=== PATIENT | female | born 1980 | race Caucasian/White ===

== ENCOUNTER → 2019-10-07 17:06 | Outpatient (REF) | payer BC, SELFPAY | LOC: ANHLAB 17:06 | PROVIDERS: Visit Provider Nurse Practitioner Family | DX: L98.9 Disorder of the skin and subcutaneous tissue, unspecified (principal) | CPT/HCPCS: 88305 ==

== ENCOUNTER 2019-10-15 10:54 | Emergency (ER) | payer BC, SELFPAY ==
[2019-10-15 11:11] VITALS: BP 127/86; PULSE 98; RESP 16; TEMP 36.5; O2SAT 98
--- NOTE | 2019-10-15 11:53 | ED.GENADULT ---
HPI - General Adult General Chief complaint: Nausea/Vomiting/Diarrhea Stated complaint: headache Time Seen by Provider: 10/15/19 11:24 Source: patient Mode of arrival: ambulatory Limitations: no limitations History of Present Illness HPI narrative: This patient is a 39 year old female who presents for evaluation of nausea and vomiting. PAtient states she was having diarrhea 2 days ago, and she woke up last night with nausea and vomiting. She states she feels dehydrated and she developed a frontal headache after vomiting all night. She denies fever, chills, abdominal pain, URI symptoms or UTI symptoms. Related Data Allergies Allergy/AdvReac Type Severity Reaction Status Date / Time codeine Allergy Intermediate RASH Verified 10/15/19 11:09 Review of Systems Review of Systems: All systems reviewed & are unremarkable except as noted in HPI and below Constitutional: Constitutional: Denies chills and Denies fever(s) ENT: Denies dizziness Cardiovascular: Cardiovascular: Denies chest pain Respiratory: Respiratory: Denies cough and Denies dyspnea Gastrointestinal: Gastrointestinal: Denies abdominal pain, Reports diarrhea, Reports nausea and Reports vomiting Genitourinary: Genitourinary: Reports no additional female genitourinary complaints Neurologic: Reports headache(s) [facility] Past Medical History Medical History (Updated 10/15/19 @ 15:40 by Tri Stephen MD) Skin neoplasm Surgical History Surgical History (Updated 10/07/19 @ 17:01 by Fernanda Jacobs CMA) History of hand surgery History of rhinoplasty Family History Family History (Updated 10/07/19 @ 17:01 by Fernanda Jacobs CMA) Mother Cancer of kidney Social History Social History (Updated 10/07/19 @ 17:02 by Fernanda Jacobs CMA) Smoking status: Former smoker Alcohol intake: current Substance use: never Gender identity (if verbalized by the patient): Female Exam Narrative: Exam Narrative: GENERAL: Well-appearing, well-nourished, and in no acute distress. HEAD: Normocephalic, atraumatic EYES: PERRLA and EOMI, conjunctiva clear without discharge EARS: TM's clear bilaterally without erythema or dullness THROAT:Mucous membranes moist, NECK: Supple, RESPIRATORY: No respiratory distress, Airway patent, Respirations non-labored, Clear to auscultation without rales, rhonchi or wheeze HEART: Regular rate and rhythm. No murmur heard. Normal peripheral pulses. ABDOMEN: Soft, nontender, nondistended, normal active bowel sounds. No masses. No rebound or guarding, No organomegaly. EXTREMITIES: No edema, normal strength with full range of motion. SKIN: Warm, dry, normal color without rash NEURO: Alert and oriented x3. CN 2-12 grossly intact. No focal deficits. PSYCH: Normal mood and affect. Course Reevaluation(s) Reevaluation #1: I Discussed with patient that labs are unremarkable. She feels better and she is able to tolerate PO. She will follow up her [employer] regarding covid testing since she works at [employer] Date: 10/15/19 Time: 15:38 Vital Signs Vital signs: Vital Signs Temperature 97.7 F 10/15/19 11:11 Pulse Rate 98 10/15/19 11:11 Respiratory Rate 16 10/15/19 11:11 Blood Pressure 127/86 10/15/19 11:11 Pulse Oximetry 98 10/15/19 11:11 Temperature 97.7 F 10/15/19 11:11 Pulse Rate 88 10/15/19 16:10 Respiratory Rate 18 10/15/19 16:10 Blood Pressure 128/82 10/15/19 16:10 Pulse Oximetry 100 10/15/19 16:10 Medical Decision Making Vital Signs Vital Signs: Vital Signs Temperature 97.7 F 10/15/19 11:11 Pulse Rate 98 10/15/19 11:11 Respiratory Rate 16 10/15/19 11:11 Blood Pressure 127/86 10/15/19 11:11 Pulse Oximetry 98 10/15/19 11:11 Temperature 97.7 F 10/15/19 11:11 Pulse Rate 88 10/15/19 16:10 Respiratory Rate 18 10/15/19 16:10 Blood Pressure 128/82 10/15/19 16:10 Pulse Oximetry 100 10/15/19 16:10 Lab Data Result vianey
[2019-10-15 12:08] LABS: Basophils Percent Auto 0.7 % (0.2-1.2); Eosinophils Absolute Auto 0.1 K/mm3 (0-0.3); Eosinophils Percent Auto 1.4 % (0-4.4); Hematocrit 40.7 % (37.0-47.0); Hemoglobin 13.8 g/dL (12.0-15.0); Immature Granulocyte Absolute 0.03 K/mm3 (0.00-0.031); Immature Granulocyte Percent A 0.5 % (0-0.5); Lymphocytes Absolute Auto 1.72 K/mm3 (0.9-3.2); Lymphocytes Percent Auto 29.9 % (18.3-44.2); Mean Corpuscular HGB Conc 33.9 g/dl (32-36); Mean Corpuscular Hemoglobin 32.9 pg (26-34); Mean Corpuscular Volume 96.9 fl (80-100); Mean Platelet Volume 9.9 fl (7.4-10.4); Monocytes Absolute Auto 0.3 K/mm3 (0.1-0.6); Monocytes Percent Auto 5.6 % (2.6-8.5); Neutrophils Absolute Auto 3.6 K/mm3 (1.3-6.7); Neutrophils Percent Auto 61.9 % (45.5-73.1); Platelet Count Result 336 k/mm3 (150-375); Red Cell Distribution Width 13.1 % (11.5-14.5); White Blood Count 5.8 K/mm3 (4.5-10.0)
[2019-10-15] MEDS: ONDANSETRON INJ 4 MG/2 ML VIAL IV PUSH (12:11)
[2019-10-15] MEDS: LACTATED RINGERS 1,000 ML 999 ML IV CONT (12:11)
[2019-10-15 12:18] LABS: Alanine Aminotransferase 18 U/L (4-35); Albumin Level 4.8 g/dL (3.5-5.1); Alkaline Phosphatase 60 U/L (38-126); Anion Gap 14.4 mmol/L (7-16); Aspartate Amino Transferase 27 U/L (14-36); Bilirubin,Total 0.3 mg/dL (0.2-1.3); Blood Urea Nitrogen 10 mg/dL (7-17); Calcium 9.2 mg/dL (8.4-10.2); Carbon Dioxide 26 mmol/L (22-30); Chloride 105 mmol/L (98-107); Estimated CRCL calculation 78 ml/min; Estimated Glomerular Filt Rate > 60; Glucose 84 mg/dL (65-105); Lipase 59 U/L (23-300); Potassium 4.4 mmol/L (3.4-5.0); Sodium 141 mmol/L (137-145)
[2019-10-15 12:30] VITALS: BP 109/67; BP 125/87; BP 128/85; PULSE 77; PULSE 83; PULSE 84
[2019-10-15 13:16] LABS: Add Urine Microscopic? NO; Appearance Urine Clear (Clear); Bilirubin Urine Negative (Negative); Blood Urine Negative (Negative); Color Urine Yellow (Yellow); Glucose Urine UA Negative (Negative); Ketones Urine Negative (Negative); Leukocyte Esterase Ur Negative LEU/UL (Negative); Mucus Urine Rare /lpf; Nitrate Urine Negative (Negative); Protein Urine Negative (Negative); RBC Urine 0-2 /hpf (0-2); Specific Grav Ur 1.015 (1.001-1.035); Squamous Epithelial Cell Urine Occasional /hpf (Few); Urobilinogen Urine Negative mg/dL (<2.0); WBC Urine 0-3 /hpf
[2019-10-15] MEDS: SODIUM CHLORIDE 0.9% IV 1,000 ML 999 ML IV CONT (14:00)
[2019-10-15] MEDS: diphenhydrAMINE HCl INJ 50 MG/ML VIAL 25 MG IV PUSH (14:08)
[2019-10-15] MEDS: METOCLOPRAMIDE HCL INJ 10 MG/2 ML VIAL IV PUSH (14:09)
[2019-10-15 16:10] VITALS: BP 128/82; PULSE 88; RESP 18; O2SAT 100
== END 2019-10-15 16:15 | disposition home or self-care (01) ==
PROVIDERS: Emergency Provider General Practice
DX: R11.2 Nausea with vomiting, unspecified (principal); Z87.891 Personal history of nicotine dependence
CPT/HCPCS: 36415; 80053; 81003; 81025; 83690; 85025; 96361; 96365; 96375; 99284; J0131; J1200; J2405; J2765; J7030; J7120

== ENCOUNTER 2022-05-27 10:34 | Outpatient (CLI) | payer BC, SELFPAY ==
--- NOTE | ~2022-05-27 | CT_ITS ---
CT of the Abdomen and Pelvis: Indication: Abdominal pain Technique: 2.5 mm axial scans were obtained through the abdomen and pelvis following intravenous adm inistration of 100 cc of Omnipaque 350. Dose reduction technique was used on this scan by utilizing a utomated exposure control and iterative reconstruction technique. The dose-length product (DLP) was 3 24.31 mGy-cm. COMPARISON: 03/13/2013 Findings: Scans through the lung bases are unremarkable. The liver, spleen, pancreas, gallbladder, adrenals and kidneys are within normal limits. No evidence of aortic aneurysm. No lymphadenopathy. There is probable extensive large bowel wall thickening, especially involving the descending and sigm oid colon with mild adjacent inflammatory stranding. No abscess or free air. No bowel obstruction. Images through the pelvis were performed. Urinary bladder unremarkable. IUD in place. No adnexal mass clearly evident. Impression: Findings consistent with infectious/inflammatory colitis, predominantly involving the descending and sigmoid colon. IUD in place. Reviewed, dictated and finalized at location . Impression: Findings consistent with infectious/inflammatory colitis, predominantly involvi ng the descending and sigmoid colon. IUD in place.
== END 2022-05-27 10:35 ==
LOC: MICIMG 10:36
PROVIDERS: PCP Nurse Practitioner; Visit Provider Nurse Practitioner
DX: K92.1 Melena (principal); R10.9 Unspecified abdominal pain; R93.5 Abnormal findings on diagnostic imaging of other abdominal regions, including retroperitoneum
CPT/HCPCS: 74177; Q9967

== ENCOUNTER → 2022-07-30 08:14 | Outpatient (CLI) | payer BC, SELFPAY ==
--- NOTE | ~2022-07-30 | MM_ITS ---
EXAMINATION: MM screening maninder BI w [facility] HISTORY: Screening mammogram TECHNIQUE: Craniocaudal and mediolateral oblique 3-D tomosynthesis images were obtained and synthetic 2-D images were generated. CAD analysis was submitted and interpreted. COMPARISON: None, baseline BREAST PARENCHYMAL COMPOSITION: The breasts are heterogeneously dense, which may obscure small masses . FINDINGS: No suspicious mass, calcification, or architectural distortion are identified in either love ast to suggest malignancy. IMPRESSION: 1. No mammographic evidence of malignancy. 2. Recommend routine screening mammography in one year. BI-RADS Category 1: Negative Reviewed, dictated and finalized at location A.
== END ==
PROVIDERS: PCP Nurse Practitioner
DX: Z12.31 Encounter for screening mammogram for malignant neoplasm of breast (principal)
CPT/HCPCS: 77063; 77067